=== PATIENT | male | born 1980 | race Caucasian/White ===

== ENCOUNTER 2017-01-12 20:51 | Emergency (ER) | payer BC, MEDICAID, OTHER ==
[2017-01-12 21:04] VITALS: BP 152/87
[2017-01-12] MEDS ORDERED: Ketorolac 60 MG/2 ML SDV IM ONE (21:33)
[2017-01-12] MEDS ORDERED: Cyclobenzaprine 10 MG Tab PO ONE (21:33)
[2017-01-12] MEDS ORDERED: HYDROmorphone 1 MG/ML Syringe IM ONE (21:33)
--- NOTE | 2017-01-12 21:44 | EDM.PDOC ---
ED UPPER BACK/NECK PAIN/INJURY - General Chief Complaint: Back Pain or Injury Stated Complaint: BACK PAIN Time Seen by Provider: 01/12/17 21:22 Source of Information: Reports: Patient History Limitations: Reports: No limitations - History of Present Illness INITIAL COMMENTS - FREE TEXT/NARRATIVE: Patient is a 36-year-old male presents ED complaining of severe left mid thoracic back pain. States it started around 1300 hours today. Notes increasing pain with movement taking a deep breath it radiates in up into his neck and down his back. Has intermittent numbness and tingling down the posterior aspect of his left leg. States he was moving boxes earlier this morning fracture. In addition he spent the remainder the day handling a hydro- vac working on a trench. Does not recall any specific precipitating factor. Has taken ibuprofen with minimal relief. He has no prior injury to his upper or lower back. He is able to ambulate with no difficulties. Denies any shortness of breath, chest pain, nausea vomiting, incontinence to urine or stool , saddle anesthesia, or any additional complaints. Patient denies any history of blunt forced trauma to his chest or back. Denies any past service. (i.e. percussion from explosives) Timing/Duration: Reports: Constant, Waxing/waning Location: Reports: paraspinal (Inferior border of left scapula. 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 - Related Data Allergies/ADRs: Allergies Allergy/AdvReac Type Severity Reaction Status Date / Time silantin Allergy Other Uncoded 01/12/17 21:04 Home Meds: Home Meds tiZANidine [Zanaflex] 4 mg PO BID #20 tablet 01/12/17 [Rx] Past Medical History HEENT History: Reports: Impaired vision Neurological History: Reports: Other (see below) Other Neuro History: 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 Denies: neck pain, shoulder pain Neurological: Reports: Numbness (down the posterior aspect of left leg, intermittent). Denies: Dizziness, Difficulty Walking ED EXAM, UPPER BACK/NECK PAIN - Physical Exam Exam: See Below Exam Limited By: No limitations General Appearance: alert, WD/WN, mild distress Ears Exam: hearing grossly normal Nose Exam: normal inspection Throat/Mouth Exam: Normal voice, No airway compromise Neck Exam: non-tender, full range of motion, normal alignment, normal inspection Cardiovascular/Respiratory: regular rate, rhythm, no M/R/G, normal peripheral pulses, normal breath sounds, no respiratory distress GI/Abdominal: normal bowel sounds, soft, non tender, no organomegaly, no distention, no abnormal bruit Back Exam: normal inspection, decreased range of motion, paraspinal tenderness ( inferior border of left rib: knot present. With palpation shoots pain to the neck and down his back. No swelling, ecchymosis, or bony abnormalities noted. ) . 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, no motor/sensory deficits, normal mood/ affect, oriented x 3 Psychiatric: normal affect, normal mood Skin Exam: Normal color, Warm/dry Course - Vital Signs Last Recorded V/S: Last Vital Signs Temp 98.1 F 01/12/17 21:00 Pulse 67 01/12/17 21:00 Resp 14 01/12/17 21:00 BP 152/87 H 01/12/17 21:00 Pulse Ox 100 01/12/17 21:00 - Orders/Labs/Meds Meds: Medications Discontinued Medications Generic Name Dose Route Start Last Admin Trade Name Freq PRN Reason Stop Dose Admin Cyclobenzaprine HCl 10 mg 01/12/17 21:33 01/12/17 21:44 Flexeril PO 01/12/17 21:34 10 mg ONETIME ONE Administration Hydromorphone HCl 0.5 mg 01/12/17 21:33 01/12/17 21:49 Dilaudid IM 01/12/17 21:34 Not Given ONETIME ONE Ketorolac Tromethamine 60 mg 01/12/17 21:33 01/12/17 21:45 Toradol IM 01/12/17 21:34 60 mg ONETIME ONE Administration - Re-Assessments/Exams Free Text/Narrative Re-Assessment/Exam: Ordered Dilaudid 0.5 mg IM, Flexeril 10 mg by mouth, and Toradol 60 mg IM. No studies required. 01/12/17 22:11 Reassessment, pain has drastically improved with the above therapies. Patient did refuse the dilaudid. Will discharge patient home with instructions as documented. Departure - Departure Time of Disposition: 22:12 Disposition: Home, Self-Care 01 Condition: good Clinical Impression: Muscle strain of left upper back Qualifiers: Encounter type: initial encounter Qualified Code(s): S29.012A - Strain of muscle and tendon of back wall of thorax, initial encounter Prescriptions: tiZANidine [Zanaflex] 4 mg PO BID #20 tablet Instructions: Back Pain, Adult, [id number], Muscle Strain, [id number], Back Injury Prevention, [id number] Referrals: Artem Ivy MD [Primary Care Provider] - Forms: ED Department Discharge, Return to Work/School Form Additional Instructions: Take zanaflex 4mg twice a day. For pain take ibuprofen 600mg every 6 hours and tylenol 650mg every 6 hours in alternating fashion. Apply warm compresses as needed with gentle massage and ice afterwards. Followup with PCP in one week if symptoms continue. Refrain from any activities that aggravate discomfort. Return to the E.D. for any new or worsening symptoms.
== END 2017-01-12 22:21 | disposition home or self-care (01) ==
LOC: JD.ED 20:51
DX: S29.012A Strain of muscle and tendon of back wall of thorax, initial encounter (principal); Z88.8 Allergy status to other drugs, medicaments and biological substances; X50.9XXA Other and unspecified overexertion or strenuous movements or postures, initial encounter; Y99.0 Civilian activity done for income or pay
CPT/HCPCS: 96372; 99283; A9270; J1885; 99284

== ENCOUNTER 2017-08-22 06:46 | Emergency (ER) | payer BC ==
[2017-08-22 07:10] VITALS: BP 138/84
--- NOTE | 2017-08-22 07:20 | EDM.PDOC ---
ED HPI GENERAL MEDICAL PROBLEM - General Chief Complaint: General Stated Complaint: DIZZY Time Seen by Provider: 08/22/17 07:14 Source of Information: Reports: Patient History Limitations: Reports: No Limitations - History of Present Illness INITIAL COMMENTS - FREE TEXT/NARRATIVE: Patient presents with acute onset of the vertigo symptoms while at work this morning. He works from 3:00 to 6:30 at [employer] when he developed for vertigo while at work. States he feels offkilter like he is spinning in the room and standing still. Associated nausea without vomiting. No recent closed head injuries. No recent upper respiratory tract infections. Reports listing to the left side. He was similar problems. Mild associated headache. States he had stop 3 times when driving his motor vehicle. He was driving on his way to [facility] to his second job. This morning he did have a piece of chocolate and some coffee to drink.. 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 (see below) (None.) - Related Data Allergies Allergy/AdvReac Type Severity Reaction Status Date / Time silantin Allergy Other Uncoded 08/22/17 07:07 Home Meds: Home Meds Meclizine [Antivert] 25 mg PO Q8H #12 tablet 08/22/17 [Rx] Past Medical History HEENT History: Reports: Impaired Vision Neurological History: Reports: Other (See Below) Other Neuro History: 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 Denies: Fever, Chills, Malaise, Weight Loss HEENT: Reports: Vertigo Respiratory: Reports: No Symptoms Cardiovascular: Reports: No Symptoms Endocrine: Reports: No Symptoms GI/Abdominal: Reports: No Symptoms : Reports: No Symptoms Musculoskeletal: Reports: No Symptoms Skin: Reports: No Symptoms Neurological: Reports: Headache, Difficulty Walking, Gait Disturbance. Denies: No Symptoms, Numbness, Paresthesia (Very mild), Seizure, Tingling, Trouble Speaking, Weakness, Change in Speech Psychiatric: Reports: No Symptoms Hematologic/Lymphatic: Reports: No Symptoms Immunologic: Reports: No Symptoms ED EXAM, GENERAL - Physical Exam Exam: See Below Exam Limited By: No Limitations General Appearance: Alert, WD/WN, Moderate Distress Eye Exam: Right Eye: Nystagmus (Lateral gaze nystatin is mildly sustained 7 beats.) Ears: Normal External Exam, Normal TMs Throat/Mouth: Normal Inspection, Normal Lips, Normal Teeth, Normal Oropharynx Head: Atraumatic, Normocephalic Neck: Normal Inspection, Supple, Non-Tender, Full Range of Motion. No: Lymphadenopathy (L), Lymphadenopathy (R) Respiratory/Chest: No Respiratory Distress, Lungs Clear, Normal Breath Sounds, No Accessory Muscle Use Cardiovascular: Normal Peripheral Pulses, Regular Rate, Rhythm, No Edema, No Gallop, No Murmur Peripheral Pulses: 2+: Posterior Tibial (L), Posterior Tibial (R), Dorsalis Pedis (L), Dorsalis Pedis (R) GI/Abdominal: Normal Bowel Sounds, Soft, Non-Tender, No Organomegaly, No Abnormal Bruit, No Mass, Pelvis Stable Extremities: Normal Inspection, Normal Range of Motion, Non-Tender, No Pedal Edema Neurological: Alert, Oriented, CN II-XII Intact, Normal Cognition, No Motor/ Sensory Deficits, Abnormal Gait (Unsteady gait. Required assistance to walk.), Other (Finger to nose was essentially normal. Rapid O Torres meeting was normal no pronator drift.) Psychiatric: Normal Affect, Normal Mood Skin Exam: Warm, Dry, Intact, Normal Color, No Rash Course - Vital Signs Last Recorded V/S: Last Vital Signs Temp 36.4 C 08/22/17 07:08 Pulse 66 08/22/17 07:08 Resp 18 08/22/17 07:08 BP 138/84 08/22/17 07:08 Pulse Ox 100 08/22/17 07:08 Orthostatic Blood Pressure [ 124/96 Standing] Orthostatic Blood Pressure [ 138/84 Supine] - Orders/Labs/Meds Orders: Active Orders 24 hr Category Date Time Status Orthostatic Vital Signs [RC] ASDIRECTED Care 08/22/17 07:13 Active Sodium Chloride 0.9% [Normal Saline] 1,000 ml Med 08/22/17 07:30 Active IV ASDIRECTED Medication Orders Sodium Chloride (Normal Saline) 1,000 mls @ 250 mls/hr IV ASDIRECTED DENISSE Last Admin: 08/22/17 07:37 Dose: 250 mls/hr Labs: Laboratory Tests 08/22/17 08/22/17 Range/Units 07:35 07:35 WBC 4.76 (4.23-9.07) K/mm3 RBC 5.24 (4.63-6.08) M/mm3 Hgb 15.0 (13.7-17.5) gm/L Hct 43.4 (40.1-51.0) % MCV 82.8 (79.0-92.2) fl MCH 28.6 (25.7-32.2) pg MCHC 34.6 (32.2-35.5) g/dl RDW Std Deviation 38.9 (35.1-43.9) fL Plt Count 205 (163-337) K/mm3 MPV 9.7 (9.4-12.3) fl Neutrophils % (Manual) 66 H (40-60) % Band Neutrophils % 0 (0-10) % Lymphocytes % (Manual) 29 (20-40) % Atypical Lymphs % 0 % Monocytes % (Manual) 4 (2-10) % Eosinophils % (Manual) 0 L (0.8-7.0) % Basophils % (Manual) 1 (0.2-1.2) Platelet Estimate Adequate RBC Morph Comment Normal Sodium 142 (136-145) mEq/L Potassium 3.6 (3.5-5.1) mEq/L Chloride 105 (98-107) mEq/L Carbon Dioxide 29 (21-32) mEq/L Anion Gap 11.6 (5-15) BUN 14 (7-18) mg/dL Creatinine 1.2 (0.7-1.3) mg/dL Est Cr Clr Drug Dosing 83.00 mL/min Estimated GFR (MDRD) > 60 (>60) mL/min BUN/Creatinine Ratio 11.7 L (14-18) Glucose 96 (74-106) mg/dL Calcium 9.3 (8.5-10.1) mg/dL Total Bilirubin 0.3 (0.2-1.0) mg/dL AST 27 (15-37) U/L ALT 34 (16-63) U/L Alkaline Phosphatase 68 (46-116) U/L C-Reactive Protein < 0.2 (<1.0) mg/dL Total Protein 7.6 (6.4-8.2) g/dl Albumin 4.2 (3.4-5.0) g/dl Globulin 3.4 gm/dL Albumin/Globulin Ratio 1.2 (1-2) Meds: Medications Generic Name Dose Route Start Last Admin Trade Name Freq PRN Reason Stop Dose Admin Sodium Chloride 1,000 mls @ 250 mls/hr 08/22/17 07:30 08/22/17 07:37 Normal Saline IV 250 mls/hr ASDIRECTED DENISSE Administration Discontinued Medications Generic Name Dose Route Start Last Admin Trade Name Freq PRN Reason Stop Dose Admin Lorazepam 0.5 mg 08/22/17 07:21 08/22/17 07:38 Ativan IVPUSH 08/22/17 07:22 0.5 mg ONETIME ONE Administration Metoclopramide HCl 10 mg 08/22/17 07:21 08/22/17 07:37 Reglan IVPUSH 08/22/17 07:22 10 mg ONETIME ONE Administration - Radiology Interpretation Free Text/Narrative:: 37-year-old male presents with acute onset of vertigo symptoms while in the workplace this morning. He denies any possible exposure just carbon dioxide. He presents with vertigo symptoms on right lateral gaze. Required 1 person to help him walk to the bathroom. Better if he lies still and closes his eyes. Plan normal saline at 250 mils per hour. Given Reglan 10 mg IV with Ativan 0.5 mg IV. Routine labs to be collected. CT head will be done. - Re-Assessments/Exams Free Text/Narrative Re-Assessment/Exam: 08/22/17 08:17 CT of the brain is within normal limits. There is no intracranial hemorrhage or mass effect. 08/22/17 09:28 Labs reveal a normal white count at 4.76 with a normal hemoglobin at 15.0 hematocrit of 43.4. Platelets are 205,000. Differential 66% neutrophils and no bands. Sodium is 142. Potassium 3.6. And a gap is 11.6. Creatinine is 1.2. B1 is 14. EGFR is greater than 60. Glucose is 96. Calcium 9.3. Total bilirubin is 0.3 liver function otherwise normal CRP is less than 0.2. 08/22/17 10:15: Did very well when up in the hallway in fact the dizziness vertigo is completely gone. We'll leave him off work today and see how he feels tomorrow. In the meantime I'm going to place him on Antivert 25 mg every 8 hours for 4 days. Tablet would be due at 2:00 today. He will return to the ED or follow-up with personal physician if any further problems occur. Departure - Departure Time of Disposition: 10:24 Disposition: Home, Self-Care 01 Condition: Fair Clinical Impression: Benign paroxysmal positional vertigo of left ear - Discharge Information Prescriptions: Meclizine [Antivert] 25 mg PO Q8H #12 tablet Referrals: PCP,None [Primary Care Provider] - Forms: ED Department Discharge, ED Return to Work/School Form Additional Instructions: Evaluation in the emergency room today in regards to sudden onset of severe vertigo which is a sense of spinning and off kilter in balance. All of the lab work done today was within normal limits which is usually the case. There was no evidence of heart related illness or blood pressure problems. Problem appears to be with the left ear with the balance mechanism not working properly. Treatment with medications intravenously Reglan and Ativan did control the symptoms. Suggest use of Antivert or meclizine 25 mg every 8 hours for the next 4 days to keep vertigo under control. They do not fix the problem time fixes the problem. Home to rest sleep today. Off work today may tentatively return tomorrow if you're feeling better. May eat and drink per normal.. - My Orders Last 24 Hours: My Active Orders 08/22/17 07:13 Orthostatic Vital Signs [RC] ASDIRECTED 08/22/17 07:30 Sodium Chloride 0.9% [Normal Saline] 1,000 ml IV ASDIRECTED - Assessment/Plan Last 24 Hours: My Active Orders 08/22/17 07:13 Orthostatic Vital Signs [RC] ASDIRECTED 08/22/17 07:30 Sodium Chloride 0.9% [Normal Saline] 1,000 ml IV ASDIRECTED
[2017-08-22] MEDS ORDERED: LORazepam 2 MG/ML MDV IVPUSH ONE (07:21)
[2017-08-22] MEDS ORDERED: Metoclopramide 10 MG/2 ML SDV IVPUSH ONE (07:21)
[2017-08-22] MEDS ORDERED: Sodium Chloride 0.9% 1,000 ML IV SCH (07:30)
--- NOTE | 2017-08-22 08:00 | CT ---
Head CT Technique: Multiple axial sections through the brain were obtained. Intravenous contrast was not utilized. Comparison: Prior head CT study of 04/14/16. Findings: Ventricles along with basal cisterns and sulci over the convexities appear within normal limits for the patient's age. Areas of encephalomalacia are noted within the left cerebellar hemisphere and within the left temporal lobe. These are stable from prior head CT exam. Overlying bur holes and craniotomy appear to be present on the left side. No other abnormal parenchymal densities are seen. No evidence of intracranial hemorrhage. No midline shift or mass effect is seen. No acute calvarial abnormality is identified. Visualized sinuses are clear. Impression: 1. Stable head CT from prior exam of 04/14/16. 2. No acute intracranial abnormality is identified. Diagnostic code #2
== END 2017-08-22 10:36 | disposition home or self-care (01) ==
LOC: JD.ED 06:46
DX: H81.12 Benign paroxysmal vertigo, left ear (principal); Z88.8 Allergy status to other drugs, medicaments and biological substances
CPT/HCPCS: 36415; 70450; 80053; 85025; 86140; 96361; 96374; 96375; 99284; J2060; J2765; J7040

== ENCOUNTER 2018-01-03 12:54 | Emergency (ER) | payer BC, OTHER ==
[2018-01-03] MEDS ORDERED: Sodium Chloride 0.9% 10 ML Syringe FLUSH PRN (13:01)
--- NOTE | 2018-01-03 13:46 | CT ---
CT cervical spine Technique: Multiple axial sections were obtained from above C1 inferiorly to the mid T3 level. Reconstructed sagittal and coronal images were reviewed. Comparison: Prior cervical spine CT exam of 04/14/16. Findings: Stable disc space narrowing is noted C5-C6 with posterior and anterior osteophytes. Mild degenerative change within the uncovertebral joints also noted at C5-C6. Other disc spaces are preserved. Vertebral body heights are maintained. No fracture is identified. No bony central or bony neural foraminal stenosis is seen. No abnormal subluxation is seen. Scoliosis is present within the spine. Impression: 1. Mild degenerative change. 2. Scoliosis which is possibly positional. 3. Nothing acute is appreciated on CT study of the cervical spine. Diagnostic code #2
--- NOTE | 2018-01-03 13:46 | CT ---
Head CT Technique: Multiple axial sections through the brain were obtained. Intravenous contrast was not utilized. Comparison: Prior head CT study of 08/22/17. Findings: Encephalomalacia is noted within the temporal lobe. Previous left-sided craniotomy is seen. There is also an area of encephalomalacia within the left cerebellar hemisphere which is stable. No abnormal parenchymal densities are seen. No midline shift or mass effect is seen. No intracranial hemorrhage is identified. Bone window settings shows no acute calvarial abnormality. Visualized sinuses are clear. Impression: 1. Stable areas of encephalomalacia on the left side with previous left-sided craniotomy. 2. No acute intracranial abnormality is seen. No appreciable change is seen from previous head CT exam. Diagnostic code #2
--- NOTE | 2018-01-03 13:48 | CR ---
Pelvis: AP view of the pelvis was obtained. Comparison: No prior pelvis exam. Joint spaces within both hips are maintained. Right sacroiliac joint appears to be slightly narrowed as compared to the left side. No fracture or other bony abnormality is appreciated. Impression: 1. Possible joint space narrowing within the right sacroiliac joint although some of this may also represent rotation. 2. Nothing acute is appreciated on single AP pelvis study. Diagnostic code #2
[2018-01-03] MEDS ORDERED: Acetaminophen 325 MG Tab PO ONE (14:40)
[2018-01-03] MEDS ORDERED: Ketorolac 30 MG/ML SDV IVPUSH SCH (14:45)
--- NOTE | 2018-01-03 15:09 | EDM.PDOC ---
ED HPI GENERAL MEDICAL PROBLEM - General Chief Complaint: Trauma Stated Complaint: BACK INJURY Time Seen by Provider: 01/03/18 13:00 Source of Information: Reports: Patient, RN Notes Reviewed - History of Present Illness INITIAL COMMENTS - FREE TEXT/NARRATIVE: 37-year-old male presents to ED having suffered a fall cleaning attained had a fracture site [place]. Wearing a hard hat but did hit the back of his head hard. He believes that he had believed LOC. He has moderate headache on arrival, moderate posterior neck discomfort, low back pain and also left lateral hip discomfort. He was brought here by private vehicle. This injury occurred about 2 hours prior to arrival. He is not been vomiting. He does not feel nauseated at this time. No focal weakness, numbness or tingling. No chest pain or difficulty breathing. Head Pain Score (Numeric/FACES): 10 Neck Pain Score (Numeric/FACES): 10 Lower Back Pain Score (Numeric/FACES): 10 Left Hip Pain Score (Numeric/FACES): 10 - Related Data Allergies Allergy/AdvReac Type Severity Reaction Status Date / Time silantin Allergy Other Uncoded 01/03/18 13:03 Home Meds: Home Meds . [No Known Home Meds] 01/03/18 [History] Past Medical History HEENT History: Reports: Impaired Vision Other HEENT History: wears eyeglasses. 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 Open skull Fx. Oncologic (Cancer) History: Reports: None - Infectious Disease History Infectious Disease History: Reports: Chicken Pox, Measles, Mumps - Past Surgical History Male Surgical History: Reports: None Social & Family History - Family History Cardiac: Reports: Hypertension - Tobacco Use Smoking Status *Q: Never Smoker Second Hand Smoke Exposure: No - Caffeine Use Caffeine Use: Reports: Coffee, Energy Drinks, Soda - Alcohol Use Days Per Week of Alcohol Use: 0 - Recreational Drug Use Recreational Drug Use: No Review of Systems - Review of Systems Review Of Systems: See Below Constitutional: Reports: No Symptoms Eyes: Reports: No Symptoms Ears: Reports: No Symptoms Nose: Reports: No Symptoms Mouth/Throat: Reports: No Symptoms Respiratory: Denies: Shortness of Breath, Pleuritic Chest Pain Cardiovascular: Denies: Chest Pain GI/Abdominal: Denies: Abdominal Pain, Nausea, Vomiting Musculoskeletal: Reports: Neck Pain, Back Pain (Low back), Joint Pain (Left hip) Skin: Reports: No Symptoms Neurological: Denies: Numbness, Tingling ED EXAM, GENERAL - Physical Exam Exam: See Below General Appearance: Alert, Anxious, Moderate Distress Eye Exam: Bilateral Eye: PERRL Throat/Mouth: Normal Inspection Head: Atraumatic, Other (No visible swelling, bruising or abrasion) Neck: Supple, Other (Diffuse posterior tenderness) Respiratory/Chest: No Respiratory Distress, Lungs Clear, Normal Breath Sounds Cardiovascular: Regular Rate, Rhythm GI/Abdominal: Soft, Non-Tender. No: Guarding Back Exam: Vertebral Tenderness (Low mid back, no bruising swelling or abrasion visible) Extremities: Leg Pain (Wrist tenderness of the left lateral hip) Skin Exam: Warm, Dry, Normal Color Course - Vital Signs Last Recorded V/S: Last Vital Signs Temp 98.5 F 01/03/18 15:25 Pulse 74 01/03/18 15:25 Resp 16 01/03/18 15:25 BP 148/97 H 01/03/18 15:25 Pulse Ox 99 01/03/18 15:25 - Orders/Labs/Meds Orders: Active Orders 24 hr Category Date Time Status Peripheral IV Care [RC] . DIRECTED Care 01/03/18 13:02 Active Ketorolac [Toradol] Med 01/03/18 14:45 Active 30 mg IVPUSH ONETIME Sodium Chloride 0.9% [Saline Flush] Med 01/03/18 13:01 Active 10 ml FLUSH ASDIRECTED PRN Peripheral IV Insertion Adult [OM.PC] Stat Oth 01/03/18 13:00 Ordered Medication Orders Ketorolac Tromethamine (Toradol) 30 mg IVPUSH ONETIME [facility] Last Admin: 01/03/18 14:59 Dose: 30 mg Sodium Chloride (Saline Flush) 10 ml FLUSH ASDIRECTED PRN PRN Reason: Keep Vein Open Last Admin: 01/03/18 13:03 Dose: 10 ml Labs: Laboratory Tests 01/03/18 01/03/18 Range/Units 13:03 13:03 WBC 6.55 (4.23-9.07) K/mm3 RBC 5.35 (4.63-6.08) M/mm3 Hgb 15.7 (13.7-17.5) gm/L Hct 44.6 (40.1-51.0) % MCV 83.4 (79.0-92.2) fl MCH 29.3 (25.7-32.2) pg MCHC 35.2 (32.2-35.5) g/dl RDW Std Deviation 38.7 (35.1-43.9) fL Plt Count 203 (163-337) K/mm3 MPV 9.5 (9.4-12.3) fl Neut % (Auto) 65.5 (34.0-67.9) % Lymph % (Auto) 21.7 L (21.8-53.1) % [place] % (Auto) 10.2 (5.3-12.2) % Eos % (Auto) 1.8 (0.8-7.0) Baso % (Auto) 0.6 (0.1-1.2) % Neut # (Auto) 4.29 (1.78-5.38) K/mm3 Lymph # (Auto) 1.42 (1.32-3.57) K/mm3 [place] # (Auto) 0.67 (0.30-0.82) K/mm3 Eos # (Auto) 0.12 (0.04-0.54) K/mm3 Baso # (Auto) 0.04 (0.01-0.08) K/mm3 Sodium 142 (136-145) mEq/L Potassium 4.1 (3.5-5.1) mEq/L Chloride 106 (98-107) mEq/L Carbon Dioxide 27 (21-32) mEq/L Anion Gap 13.1 (5-15) BUN 14 (7-18) mg/dL Creatinine 1.0 (0.7-1.3) mg/dL Est Cr Clr Drug Dosing 102.81 mL/min Estimated GFR (MDRD) > 60 (>60) mL/min BUN/Creatinine Ratio 14.0 (14-18) Glucose 103 (74-106) mg/dL Calcium 9.7 (8.5-10.1) mg/dL Total Bilirubin 0.3 (0.2-1.0) mg/dL AST 25 (15-37) U/L ALT 33 (16-63) U/L Alkaline Phosphatase 78 (46-116) U/L Total Protein 7.6 (6.4-8.2) g/dl Albumin 4.3 (3.4-5.0) g/dl Globulin 3.3 gm/dL Albumin/Globulin Ratio 1.3 (1-2) Meds: Medications Generic Name Dose Route Start Last Admin Trade Name Freq PRN Reason Stop Dose Admin Ketorolac Tromethamine 30 mg 01/03/18 14:45 01/03/18 14:59 Toradol IVPUSH 30 mg ONETIME DENISSE Administration Sodium Chloride 10 ml 01/03/18 13:01 01/03/18 13:03 Saline Flush FLUSH 10 ml ASDIRECTED PRN Administration Keep Vein Open Discontinued Medications Generic Name Dose Route Start Last Admin Trade Name Freq PRN Reason Stop Dose Admin Acetaminophen 975 mg 01/03/18 14:40 01/03/18 14:58 Tylenol PO 01/03/18 14:41 975 mg NOW ONE Administration - Re-Assessments/Exams Free Text/Narrative Re-Assessment/Exam: 01/03/18 15:57 Labs came back normal, CT of head and neck was normal, x-ray looked good, x-ray of the pelvis and left hip also looked good he was given Toradol 30 mg IV and Tylenol by mouth. That he did really well. Feeling tremendously better at time of discharge. Discharge instructions as documented. Departure - Departure Time of Disposition: 15:07 Disposition: Home, Self-Care 01 Condition: Fair Clinical Impression: Concussion with brief (less than one hour) loss of consciousness, Contusion of hip Fall Qualifiers: Encounter type: initial encounter Qualified Code(s): W19.XXXA - Unspecified fall, initial encounter Low back strain Qualifiers: Encounter type: initial encounter Qualified Code(s): S39.012A - Strain of muscle, fascia and tendon of lower back, initial encounter - Discharge Information Instructions: Adductor Muscle Strain, Concussion, Adult, [id number], Gluteal Strain Referrals: PCP,None [Primary Care Provider] - Forms: ED Department Discharge Additional Instructions: Rest, off for today and tomorrow, you may than return to light-duty activity if tolerated, you may alternate Tylenol and ibuprofen as needed for discomfort if not up to returning to work or Tuesday and I do recommend a follow-up with occupational health for medical clearance for further evaluation, treatment as needed. Return to ED as needed if symptoms worsening in any way. - My Orders Last 24 Hours: My Active Orders 01/03/18 13:00 Peripheral IV Insertion Adult [OM.PC] Stat 01/03/18 13:01 Sodium Chloride 0.9% [Saline Flush] 10 ml FLUSH ASDIRECTED PRN 01/03/18 13:02 Peripheral IV Care [RC] . DIRECTED 01/03/18 14:45 Ketorolac [Toradol] 30 mg IVPUSH ONETIME - Assessment/Plan Last 24 Hours: My Active Orders 01/03/18 13:00 Peripheral IV Insertion Adult [OM.PC] Stat 01/03/18 13:01 Sodium Chloride 0.9% [Saline Flush] 10 ml FLUSH ASDIRECTED PRN 01/03/18 13:02 Peripheral IV Care [RC] . DIRECTED 01/03/18 14:45 Ketorolac [Toradol] 30 mg IVPUSH ONETIME
--- NOTE | 2018-01-03 15:28 | CR ---
Chest: Frontal view of the chest was obtained. Comparison: Prior chest x-ray of 01/09/15. Heart size and mediastinum are within normal limits. Lungs are clear. Bony structures are grossly intact. Impression: 1. Nothing acute is identified on frontal chest x-ray. Diagnostic code #1
--- NOTE | 2018-01-03 15:28 | CR ---
Lumbar spine: Crosstable lateral and AP view of the lumbar spine were obtained. Comparison: Lateral reconstructed images from CT abdomen and pelvis study of 01/09/15. Minimal scoliosis is noted. Mild anterior wedging of T12 is seen. This anterior wedge deformity appears fairly stable from previous exam. Other vertebral body heights are maintained. Scattered endplate osteophytes are seen. Pedicles as well as transverse and spinous processes are intact. No abnormal subluxation is seen. Impression: 1. Mild anterior wedging of T12 believed to be old. 2. Mild scattered degenerative change and minimal scoliosis are noted. Diagnostic code #2
[2018-01-03 15:32] VITALS: BP 148/97
== END 2018-01-03 15:25 | disposition home or self-care (01) ==
LOC: JD.ED 12:54
DX: S06.0X9A Concussion with loss of consciousness of unspecified duration, initial encounter (principal); S39.012A Strain of muscle, fascia and tendon of lower back, initial encounter; Z88.8 Allergy status to other drugs, medicaments and biological substances; W19.XXXA Unspecified fall, initial encounter; W22.8XXA Striking against or struck by other objects, initial encounter
CPT/HCPCS: 36415; 70450; 71045; 72100; 72125; 72170; 80053; 85025; 96374; 99285; A9270; J1885; J7050; 99284

== ENCOUNTER 2021-02-21 20:46 | Emergency (ER) | payer OTHER, SELFPAY ==
[2021-02-21] MEDS ORDERED: Sodium Chloride 0.9% 1,000 ML IV SCH (21:30)
--- NOTE | 2021-02-21 21:33 | EDM.PDOC ---
ED HPI GENERAL MEDICAL PROBLEM - General Chief Complaint: Trauma Stated Complaint: FELL ON A BRICK NECK AND BACK PAIN Time Seen by Provider: 02/21/21 21:06 Source of Information: Reports: Patient, Family () History Limitations: Reports: Altered Mental Status (Somewhat lethargic) - History of Present Illness INITIAL COMMENTS - FREE TEXT/NARRATIVE: A trauma alert was called for this patient. Mr. العلي is a very pleasant 41-year-old gentleman who is now brought to the ED by EMS after he was carrying a heavy chest and tripped and fell on a lawn around 20:30 this evening. The fall was not witnessed, and the patient does not recall the event itself. According to the patient, he recalls carrying the chest, then finding himself looking up at the sharan. He is complaining of a headache to the right side of his head, along with tinnitus that switches back and forth between his right and left ears. He denies photophobia, but states that if he opens his eyes, he sometimes sees stars, and it makes him feel dizzy. He reports phonophobia. He complains of pain to his posterior neck, and states that he has an electric shock sensation going up and down his back and into both of his lower extremities. He complains of pain to his lower right posterior ribs and to his left lateral hip area. He denies having nausea. Other than occasionally seeing stars, he denies visual changes, per se, such as blurry vision or diplopia. Here in the ED, the patient's initial BP is found to be elevated at 166/94, otherwise, he is hemodynamically stable, afebrile, saturating 98% on room air. He is keeping his eyes closed, and appears to be somewhat lethargic, although is not in acute distress. A cervical collar was placed upon arrival to the ED. Prior to this evening, the patient denies having a recent fever, chills, sore throat, ear pain, nasal or sinus congestion, cough, dyspnea, chest pain, palpitations, nausea, vomiting, constipation, diarrhea, abdominal pain, urinary symptoms, recent weight gain or weight loss, recent bloody bowel movements or black bowel movements, recent joint aches, headaches, or rashes. The patient's PCP is Dr. Kadeem Correa. Neck Pain Score (Numeric/FACES): 10 Head Pain Score (Numeric/FACES): 10 Right Posterior Back Pain Score (Numeric/FACES): 5 - Related Data Allergies Allergy/AdvReac Type Severity Reaction Status Date / Time silantin Allergy Other Uncoded 01/03/18 13:03 Home Meds: Home Meds . [No Known Home Meds] 01/03/18 [History] Past Medical History HEENT History: Reports: Impaired Vision (wears glasses) Musculoskeletal History: Reports: Fracture (ribs) Neurological History: Reports: Head Trauma, Seizure (as a child, s/p left temporal lobectomy) - Infectious Disease History Infectious Disease History: Reports: Chicken Pox, Measles, Mumps - Past Surgical History Head Surgeries/Procedures: Reports: Craniotomy (Left temoporal lobectomy) Social & Family History - Tobacco Use Tobacco Use Status *Q: Never Tobacco User - Caffeine Use Caffeine Use: Reports: Coffee, Energy Drinks, Soda - Alcohol Use Alcohol Use History: Yes Alcohol Use Frequency: Rarely - Recreational Drug Use Recreational Drug Use: No - Living Situation & Occupation Living situation: Reports: , with Spouse, with Family (7 kids) Occupation: Employed ([employer]) Review of Systems - Review of Systems Review Of Systems: Comprehensive ROS is negative, except as noted in HPI. ED EXAM, GENERAL - Physical Exam Exam: See Below Exam Limited By: No Limitations General Appearance: WD/WN, No Apparent Distress, Lethargic Eye Exam: Bilateral Eye: EOMI, Normal Inspection, PERRL Ears: Normal External Exam, Normal Canal, Hearing Grossly Normal, Normal TMs Nose: Normal Inspection, Normal Mucosa, No Blood Throat/Mouth: Normal Inspection, Normal Lips, Normal Teeth (poor dentition), Normal Gums, Normal Oropharynx, Normal Voice, No Airway Compromise Head: Atraumatic (no visible or palpable injury), Normocephalic Neck: Other (Cervical collar kept in place) Respiratory/Chest: No Respiratory Distress, Lungs Clear, Normal Breath Sounds, No Accessory Muscle Use, Other (Tenderness to palpatio of the lower right ribs, piosterior axillary line. No associated visible abnormality, such as swelling, erythema, ecchymosis, or abrasion.). No: Decreased Breath Sounds, Crackles, Rhonchi, Wheezing, Stridor, Pleural Rub, Prolonged Expiration Cardiovascular: Normal Peripheral Pulses, Regular Rate, Rhythm, No Edema, No Gallop, No JVD, No Murmur, No Rub Peripheral Pulses: 3+: Radial (L), Radial (R) GI/Abdominal: Normal Bowel Sounds, Soft, Non-Tender, No Organomegaly, No Distention, No Abnormal Bruit, No Mass Back Exam: Normal Inspection, Full Range of Motion, NT Extremities: Normal Inspection, Normal Range of Motion, No Pedal Edema, Normal Capillary Refill Neurological: Oriented, CN II-XII Intact, No Motor/Sensory Deficits, Other (Somewhat lethargic) Skin Exam: Warm, Dry, Intact, Normal Color, No Rash Course - Vital Signs Last Recorded V/S: Last Vital Signs Temp 37.2 C 02/21/21 21:07 Pulse 74 02/21/21 21:07 Resp 20 02/21/21 21:07 BP 166/94 H 02/21/21 21:07 Pulse Ox 98 02/21/21 21:07 - Orders/Labs/Meds Orders: Active Orders 24 hr Category Date Time Status Cervical Spine wo Cont [CT] Stat Exams 02/21/21 21:18 Taken Chest 1V Frontal [CR] Stat Exams 02/21/21 21:28 Taken Head wo Cont [CT] Stat Exams 02/21/21 21:18 Taken Sodium Chloride 0.9% [Normal Saline] 1,000 ml Med 02/21/21 21:30 Active IV ASDIRECTED Medication Orders Sodium Chloride (Normal Saline) 1,000 mls @ 100 mls/hr IV ASDIRECTED DENISSE Last Admin: 02/21/21 21:58 Dose: 100 mls/hr Documented by: DAYO Labs: Laboratory Tests 02/21/21 02/21/21 02/21/21 Range/Units 21:45 21:45 21:45 WBC 6.34 (4.23-9.07) K/mm3 RBC 5.15 (4.63-6.08) M/mm3 Hgb 15.1 (13.7-17.5) gm/dl Hct 43.5 (40.1-51.0) % MCV 84.5 (79.0-92.2) fl MCH 29.3 (25.7-32.2) pg MCHC 34.7 (32.2-35.5) g/dl RDW Std Deviation 39.0 (35.1-43.9) fL Plt Count 231 (163-337) K/mm3 MPV 9.2 L (9.4-12.3) fl Neutrophils % (Manual) 70 H (40-60) % Band Neutrophils % 2 (0-10) % Lymphocytes % (Manual) 22 (20-40) % Atypical Lymphs % 1 % Monocytes % (Manual) 2 (2-10) % Eosinophils % (Manual) 1 (0.8-7.0) % Basophils % (Manual) 2 H (0.2-1.2) Platelet Estimate Adequate RBC Morph Comment Normal PT 11.2 (9.7-12.0) SECONDS INR 1.05 APTT 25.4 (21.7-31.4) SECONDS Sodium 142 (136-145) mEq/L Potassium 3.8 (3.5-5.1) mEq/L Chloride 106 (98-107) mEq/L Carbon Dioxide 27 (21-32) mEq/L Anion Gap 12.8 (5-15) BUN 15 (7-18) mg/dL Creatinine 1.3 (0.7-1.3) mg/dL Est Cr Clr Drug Dosing 76.43 mL/min Estimated GFR (MDRD) > 60 (>60) mL/min BUN/Creatinine Ratio 11.5 L (14-18) Glucose 93 (70-99) mg/dL Calcium 9.1 (8.5-10.1) mg/dL Total Bilirubin 0.3 (0.2-1.0) mg/dL AST 27 (15-37) U/L ALT 45 (16-63) U/L Alkaline Phosphatase 77 (46-116) U/L Total Protein 7.4 (6.4-8.2) g/dl Albumin 4.2 (3.4-5.0) g/dl Globulin 3.2 gm/dL Albumin/Globulin Ratio 1.3 (1-2) Meds: Medications Generic Name Dose Route Start Last Admin Trade Name Freq PRN Reason Stop Dose Admin Sodium Chloride 1,000 mls @ 100 mls/hr 02/21/21 21:30 02/21/21 21:58 Normal Saline IV 100 mls/hr ASDIRECTED DENISSE Administration - Re-Assessments/Exams Free Text/Narrative Re-Assessment/Exam: 02/21/21 21:29 As above, the patient was carrying a heavy chest when he tripped on something on a lawn, likely falling backwards, although the fall itself was unwitnessed, and the patient is amnestic to the event. He is complaining of a right-sided headache with tinnitus alternating between his left and right ear, posterior neck pain, an electric shock sensation going up and down his spine and into his bilateral lower extremities, and phonophobia. No photophobia or visual changes, although he sometimes sees stars when he opens his eyes, and opening his eyes sometimes induces a dizziness sensation. A cervical collar was placed upon arrival to the ED per his nurse. I have ordered a stat CT of the head and cervical spine without contrast, along with a portable chest x-ray, and several blood tests. In the meantime, the patient will be given gentle IV fluid. I will hold off pain medication until I see the results of his CT scans. 02/21/21 22:05 CT of the head without contrast is read by [facility] as: 1. No calvarial or skull base fracture. 2. No acute infarct or hemorrhage. CT of the cervical spine without contrast is read by [facility] as: 1. Mild disc space narrowing at C5-C6. 2. No fracture. Portable chest radiograph appears to be grossly normal. The cardiac silhouette is within normal limits. No pulmonary vascular congestion. No pleural effusions seen on this AP view. No focal infiltrate. No pneumothorax. Formal read per the Radiologist pending. 02/21/21 22:13 I reevaluated the patient. He is looking and feeling much better. I opened his cervical collar and examined his neck. He reports some tenderness to his upper and lower cervical spine, as well as some discomfort to his left paracervical musculature, however, he is able to turn his head fully to the left and right, tip his chin to his chest, and extend his neck without significant discomfort, and he prefers that the cervical collar remain off. Pain medication was offered, but declined. 02/21/21 22:18 The patient's CBC is unremarkable. His CMP is unremarkable. His coags are within normal limits. 02/21/21 22:21 Test results discussed with the patient and his . The patient states that he feels well enough to go home. I recommended that he take [id number] ibuprofen as needed for discomfort. I recommended that he get plenty of rest tonight, then resume his usual activities tomorrow. If his tinnitus persists, he is to follow-up with Dr. Correa for further evaluation. Departure - Departure Time of Disposition: 22:22 Disposition: Home, Self-Care 01 Condition: Good Clinical Impression: Contusion of rib on right side, Tinnitus Fall Qualifiers: Encounter type: initial encounter Qualified Code(s): W19.XXXA - Unspecified fall, initial encounter - Discharge Information *PRESCRIPTION DRUG MONITORING PROGRAM REVIEWED*: Not Applicable *COPY OF PRESCRIPTION DRUG MONITORING REPORT IN PATIENT RAMSES: Not Applicable Instructions: Tinnitus, Rib Contusion Referrals: Kadeem Correa MD [Primary Care Provider] - Forms: ED Department Discharge Additional Instructions: You were seen in the emergency room after tripping and falling, likely striking her head and neck, and lower right ribs. Work-up in the ER included CT scans of your head and cervical spine, along with a chest x-ray, and some blood work. Your entire work-up was unremarkable. No broken bones were found, and no visible head injury was seen. We recommend that you take [id number] ibuprofen as needed for discomfort, and get plenty of rest tonight, then resume your usual activities tomorrow. If the ringing in your ears persists, please follow-up with your PCP, Dr. Kadeem Correa, for further evaluation. If any other problems, please do not hesitate to return to the ER. Sepsis Event Note (ED) - Evaluation Sepsis Screening Result: No Definite Risk - Focused Exam Vital Signs: Vital Signs Temp Pulse Resp BP Pulse Ox 02/21/21 21:07 37.2 C 74 20 166/94 H 98 - My Orders Last 24 Hours: My Active Orders 02/21/21 21:18 Cervical Spine wo Cont [CT] Stat Head wo Cont [CT] Stat 02/21/21 21:28 Chest 1V Frontal [CR] Stat 02/21/21 21:30 Sodium Chloride 0.9% [Normal Saline] 1,000 ml IV ASDIRECTED - Assessment/Plan Last 24 Hours: My Active Orders 02/21/21 21:18 Cervical Spine wo Cont [CT] Stat Head wo Cont [CT] Stat 02/21/21 21:28 Chest 1V Frontal [CR] Stat 02/21/21 21:30 Sodium Chloride 0.9% [Normal Saline] 1,000 ml IV ASDIRECTED
[2021-02-21 23:08] VITALS: BP 127/82; PULSE 67
--- NOTE | 2021-02-22 10:27 | CT ---
Head CT Technique: Multiple axial sections through the brain were obtained. Intravenous contrast was not utilized. Reconstructed coronal and sagittal images were obtained. Comparison: Prior head CT study is 01/03/18. Findings: Ventricles along with basal cisterns and sulci over the convexities appear within normal limits. Encephalomalacia is noted within the left temporal lobe and left cerebellar hemisphere. These appear similar to previous head CT exam. Prior surgery is also seen on the left side. No other abnormal parenchymal densities are seen. No evidence of intracranial hemorrhage is seen. No midline shift or mass-effect is seen. Visualized paranasal sinuses and mastoid sinuses show nothing acute. No acute calvarial abnormality is appreciated. Impression: 1. Prior surgery on the left side. Areas of stable encephalomalacia within the left temporal and left cerebellar hemisphere. 2. No acute intracranial abnormality is appreciated. Diagnostic code #2 I agree with preliminary report from [facility], finalized on 02/21/21, 10:50 PM CDT, code 1
--- NOTE | 2021-02-22 11:02 | CR ---
Chest: Portable view of the chest was obtained. Comparison: Prior chest x-ray of 01/03/18. Heart size and mediastinum are within normal limits. Lungs are clear with no acute parenchymal change. No acute osseous abnormality is appreciated. Impression: 1. Nothing acute is appreciated on portable chest x-ray. 2. No appreciable change is seen from previous exam. Diagnostic code #1
--- NOTE | 2021-02-22 14:17 | CT ---
CT cervical spine Technique: Multiple axial sections were obtained from above C1 inferiorly to the T6 level. Reconstructed coronal and sagittal images were obtained. Comparison: Prior CT cervical spine study of 04/14/16 Findings: Moderate disc space narrowing is noted at C5-6 with mild anterior and posterior spurring. These findings are similar to prior CT study. Other disc spaces are maintained. Vertebral body heights are maintained. No bony central or bony neural foraminal stenosis is seen. No acute fracture or subluxation is seen. Impression: 1. Degenerative change at C5-6 which is similar to prior CT study. 2. Nothing acute is otherwise seen on CT study of the cervical spine. Diagnostic code #2 I agree with preliminary report from [facility], finalized on 02/21/21, 10:58 PM CDT, code 1
== END 2021-02-21 22:55 | disposition home or self-care (01) ==
LOC: JD.ED 20:46
DX: S20.211A Contusion of right front wall of thorax, initial encounter (principal); H93.13 Tinnitus, bilateral; Z88.5 Allergy status to narcotic agent; W01.0XXA Fall on same level from slipping, tripping and stumbling without subsequent striking against object, initial encounter
CPT/HCPCS: 36415; 70450; 71045; 72125; 80053; 85007; 85027; 85610; 85730; 99284; J7030

== ENCOUNTER 2021-08-26 13:40 | Emergency (ER) | payer OTHER, SELFPAY ==
[2021-08-26] MEDS ORDERED: Sodium Chloride 0.9% 10 ML Syringe FLUSH PRN (13:42)
[2021-08-26 14:02] VITALS: BP 160/77; PULSE 97
--- NOTE | 2021-08-26 14:08 | CT ---
Head CT Technique: Multiple axial sections through the brain were obtained. Intravenous contrast was not utilized. Reconstructed coronal and sagittal images were obtained. Comparison: Prior head CT study of 02/21/21. Findings: Ventricles along with basal cisterns and sulci over the convexities appear within normal limits. 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 No other abnormal parenchymal densities are seen. No evidence of intracranial hemorrhage is seen. No midline shift or mass-effect is seen. Bone window settings were reviewed. Prior craniotomy is noted on the left side. Slight mucosal thickening is seen within the left mastoid sinus which appears chronic. Right mastoid sinuses is clear. No acute paranasal sinus findings are seen. No acute calvarial abnormality is appreciated. Impression: 1. 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 Please correlate. 2. Prior craniotomy is seen on the left side. 3. Nothing acute is appreciated on noncontrast head CT study. Note: If patient's symptoms warrant further evaluation, MRI study could then be considered. Diagnostic code #2
[2021-08-26] MEDS ORDERED: HYDROmorphone 1 MG/ML Syringe IVPUSH ONE (14:15)
[2021-08-26] MEDS ORDERED: Ketorolac 30 MG/ML SDV IVPUSH ONE (14:15)
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
== END 2021-08-26 16:58 | disposition home or self-care (01) ==
LOC: JD.ED 13:40
DX: M54.6 Pain in thoracic spine (principal); R20.0 Anesthesia of skin; M54.2 Cervicalgia; Z88.8 Allergy status to other drugs, medicaments and biological substances
CPT/HCPCS: 36415; 70450; 80053; 84484; 85025; 85610; 85730; 93005; 96374; 96375; 99285; J1170; J1885

== ENCOUNTER 2021-12-02 20:15 | Emergency (ER) | payer OTHER ==
[2021-12-02 20:31] VITALS: BP 161/99; PULSE 80
[2021-12-02] MEDS ORDERED: HYDROmorphone 1 MG/ML Syringe IM ONE (20:41)
== END 2021-12-02 21:40 | disposition home or self-care (01) ==
LOC: JD.ED 20:15
DX: S52.571A Other intraarticular fracture of lower end of right radius, initial encounter for closed fracture (principal); Z88.8 Allergy status to other drugs, medicaments and biological substances; W01.198A Fall on same level from slipping, tripping and stumbling with subsequent striking against other object, initial encounter; Y99.0 Civilian activity done for income or pay
CPT/HCPCS: 29125; 73110; 73130; 96372; 99283; J1170; 99284

== ENCOUNTER 2023-01-27 14:17 | Emergency (ER) | payer OTHER ==
[2023-01-27 14:59] VITALS: BP 149/98; PULSE 79
[2023-01-27] MEDS ORDERED: Sodium Chloride 0.9% 10 ML Syringe FLUSH PRN (15:14)
[2023-01-27] MEDS ORDERED: Ketorolac 30 MG/ML SDV IVPUSH ONE (15:14)
[2023-01-27] MEDS ORDERED: Orphenadrine 100 MG Tab.ER PO SCH (15:15)
== END 2023-01-27 17:54 | disposition home or self-care (01) ==
LOC: JD.ED 14:17
DX: S29.012A Strain of muscle and tendon of back wall of thorax, initial encounter (principal); M62.830 Muscle spasm of back; Z88.8 Allergy status to other drugs, medicaments and biological substances; X50.0XXA Overexertion from strenuous movement or load, initial encounter; Y99.0 Civilian activity done for income or pay
CPT/HCPCS: 96374; 99283; A9270; J1885; J3490; 99284

== ENCOUNTER 2023-04-14 07:58 | Emergency (ER) | payer SELFPAY ==
[2023-04-14] MEDS ORDERED: Ketorolac 60 MG/2 ML SDV IM ONE (08:25)
[2023-04-14] MEDS ORDERED: HYDROmorphone 1 MG/ML Syringe IM ONE (08:26)
[2023-04-14 08:50] LABS: BASOPHILS ABSOLUTE AUTO 0.02 K/mm3 (0.01-0.08); BASOPHILS PERCENT AUTO 0.2 % (0.1-1.2); EOSINOPHILS PERCENT AUTO 0 (0.8-7.0); HEMATOCRIT 43.7 % (40.1-51.0); HEMOGLOBIN 15.3 gm/dl (13.7-17.5); IMMATURE GRAN ABSOLUTE AUTO 0.02 K/mm3 (0.00-0.10); IMMATURE GRAN PERCENT AUTO 0.2 % (<=1.0); LYMPHOCYTES ABSOLUTE AUTO 0.53 K/mm3 (1.32-3.57); MEAN CORPUSCULAR HEMOGLOBIN 29.5 pg (25.7-32.2); MEAN CORPUSCULAR VOLUME 84.2 fl (79.0-92.2); MEAN PLATELET VOLUME 9.3 fl (9.4-12.3); MONOCYTES PERCENT AUTO 7.6 % (5.3-12.2); NEUTROPHILS ABSOLUTE AUTO 11.54 K/mm3 (1.78-5.38); PLATELET COUNT,PLT 182 K/mm3 (163-337); RED BLOOD CELL COUNT 5.19 M/mm3 (4.63-6.08); WHITE BLOOD CELL COUNT,WBC 13.11 K/mm3 (4.23-9.07)
[2023-04-14 09:15] LABS: A/G RATIO 1.1 (1-2); ALBUMIN 4.1 g/dl (3.4-5.0); ANION GAP 13.8 (5-15); BILIRUBIN TOTAL 0.6 mg/dL (0.2-1.0); BUN/CREATININE RATIO 6.9 (14-18); C-REACTIVE PROTEIN 7.8 mg/dL (<1.0); CALCIUM 9.2 mg/dL (8.5-10.1); CREATININE 1.3 mg/dL (0.7-1.3); EST CRCL DRUG DOSING (CG) 74.87 mL/min; POTASSIUM,K 3.8 mEq/L (3.5-5.1)
[2023-04-14 09:31] LABS: APPEARANCE,URINE CLEAR (Clear); BILIRUBIN,URINE 1+ (Negative); COLOR,URINE YELLOW (Yellow); GLUCOSE,URINE NEGATIVE (Negative); KETONES,URINE 4+ (Negative); LEUKOCYTE ESTERASE,URINE NEGATIVE (Negative); NITRITE,URINE NEGATIVE (Negative); OCCULT BLOOD,URINE NEGATIVE (Negative); PROTEIN,URINE 1+ (Negative)
[2023-04-14 09:38] LABS: BACTERIA,URINE FEW /hpf (FEW); MUCUS,URINE FEW /hpf (FEW); RBC,URINE 0-5 /hpf (0-5); SQUAMOUS EPITHELIAL CELLS,UR 0-5 /hpf (0-5); WBC,URINE 0-5 /hpf (0-5)
[2023-04-14 11:07] VITALS: BP 128/80; PULSE 97
== END 2023-04-14 11:05 | disposition home or self-care (01) ==
LOC: JD.ED 07:58
DX: M54.50 Low back pain, unspecified (principal); L03.113 Cellulitis of right upper limb; Z88.8 Allergy status to other drugs, medicaments and biological substances
CPT/HCPCS: 36415; 72100; 80053; 81001; 85025; 86140; 96372; 99283; J1170; J1885

== ENCOUNTER 2024-01-06 15:31 | Emergency (ER) | payer BC ==
[2024-01-06] MEDS ORDERED: Sodium Chloride 0.9% 10 ML Syringe FLUSH PRN (16:03)
[2024-01-06] MEDS: Iopamidol 612 MG/ML 100 ML Bottle IVPUSH ONE (16:22)
[2024-01-06] MEDS: Iopamidol 612 MG/ML 30 ML SDV IV ONE (16:22)
[2024-01-06 16:30] LABS: BASOPHILS ABSOLUTE AUTO 0.1 K/mm3 (0.0-0.2); BASOPHILS PERCENT AUTO 0.6 % (0.0-1.0); HEMATOCRIT 43.4 % (42.0-52.0); HEMOGLOBIN 15.2 gm/dl (14.0-18.0); IMMATURE GRAN ABSOLUTE AUTO 0.02 K/mm3 (0.00-0.05); IMMATURE GRAN PERCENT AUTO 0.2 % (0.0-0.4); LYMPHOCYTES ABSOLUTE AUTO 0.5 K/mm3 (1.0-4.8); LYMPHOCYTES PERCENT AUTO 6.2 % (24.0-44.0); MEAN CORPUSCULAR HEMOGLOBIN 29.4 pg (28.0-32.0); MEAN CORPUSCULAR VOLUME 83.9 fl (83.0-99.0); MONOCYTES ABSOLUTE AUTO 0.7 K/mm3 (0.0-0.8); MONOCYTES PERCENT AUTO 9.1 % (0.0-8.0); NEUTROPHILS ABSOLUTE AUTO 6.7 K/mm3 (1.8-7.7); NEUTROPHILS PERCENT AUTO 83.9 % (41.0-71.0); PLATELET COUNT,PLT 194 K/mm3 (150-400); RED BLOOD CELL COUNT 5.17 M/mm3 (4.52-5.90); WHITE BLOOD CELL COUNT,WBC 8.03 K/mm3 (3.9-11.3)
[2024-01-06] MEDS: Sodium Chloride 0.9% 1,000 ML IV ONE (16:34)
[2024-01-06] MEDS: Acetaminophen 325 MG Tab PO ONE (16:34)
[2024-01-06] MEDS: Sodium Chloride 0.9% 10 ML Syringe FLUSH PRN (16:35)
[2024-01-06 16:44] LABS: A/G RATIO 1.1 (1-2); ANION GAP 13.8 (5-15); BILIRUBIN TOTAL 0.4 mg/dL (0.2-1.0); BUN/CREATININE RATIO 7.3 (14-18); CALCIUM 9.2 mg/dL (8.5-10.1); CREATININE 1.5 mg/dL (0.7-1.3); EST CRCL DRUG DOSING (CG) 64.89 mL/min; POTASSIUM,K 3.8 mEq/L (3.5-5.1); PROTEIN TOTAL,TP 7.6 g/dl (6.4-8.2)
[2024-01-06 16:45] LABS: CORONAVIRUS COVID-19 NAA POSITIVE (NEGATIVE); INFLUENZA A NAA NEGATIVE (NEGATIVE); RESPIRATORY SYNCYTIAL VIR NAA NEGATIVE (NEGATIVE)
[2024-01-06 17:06] LABS: APPEARANCE,URINE CLEAR (Clear); BILIRUBIN,URINE NEGATIVE (Negative); COLOR,URINE YELLOW (Yellow); GLUCOSE,URINE NEGATIVE (Negative); KETONES,URINE NEGATIVE (Negative); LEUKOCYTE ESTERASE,URINE NEGATIVE (Negative); NITRITE,URINE NEGATIVE (Negative); OCCULT BLOOD,URINE NEGATIVE (Negative); PH,URINE 8.5 (5.0-8.0); PROTEIN,URINE NEGATIVE (Negative)
[2024-01-06 17:13] LABS: AMORPHOUS SEDIMENT,URINE FEW /hpf (NOT SEEN); BACTERIA,URINE OCCASIONAL /hpf (FEW); MUCUS,URINE FEW /hpf (FEW); RBC,URINE 0-5 /hpf (0-5); SQUAMOUS EPITHELIAL CELLS,UR NOT SEEN /hpf (0-5); WBC,URINE 0-5 /hpf (0-5)
[2024-01-06 19:13] VITALS: BP 134/88; PULSE 111
== END 2024-01-06 17:45 | disposition home or self-care (01) ==
LOC: JD.ED 15:31
DX: U07.1 COVID-19 (principal); S00.01XA Abrasion of scalp, initial encounter; Z88.8 Allergy status to other drugs, medicaments and biological substances; Z86.19 Personal history of other infectious and parasitic diseases; W18.2XXA Fall in (into) shower or empty bathtub, initial encounter
CPT/HCPCS: 0241U; 36415; 70450; 71260; 72125; 74177; 80053; 81001; 83735; 84484; 85025; 93005; 96360; 99284; A9270; J3490; J7030; Q9967

== ENCOUNTER 2024-07-21 21:51 | Emergency (ER) | payer BC ==
[2024-07-21 22:07] LABS: BASOPHILS ABSOLUTE AUTO 0.1 K/mm3 (0.0-0.2); BASOPHILS PERCENT AUTO 1.1 % (0.0-1.0); EOSINOPHILS ABSOLUTE AUTO 0.2 K/mm3 (0.0-0.4); EOSINOPHILS PERCENT AUTO 2.8 % (0.0-6.0); HEMATOCRIT 42.3 % (42.0-52.0); HEMOGLOBIN 14.4 gm/dl (14.0-18.0); IMMATURE GRAN ABSOLUTE AUTO 0.01 K/mm3 (0.00-0.05); IMMATURE GRAN PERCENT AUTO 0.2 % (0.0-0.4); LYMPHOCYTES ABSOLUTE AUTO 1.8 K/mm3 (1.0-4.8); LYMPHOCYTES PERCENT AUTO 28.3 % (24.0-44.0); MEAN CORPUSCULAR HEMOGLOBIN 28.8 pg (28.0-32.0); MEAN CORPUSCULAR VOLUME 84.6 fl (83.0-99.0); MONOCYTES ABSOLUTE AUTO 0.7 K/mm3 (0.0-0.8); NEUTROPHILS ABSOLUTE AUTO 3.6 K/mm3 (1.8-7.7); NEUTROPHILS PERCENT AUTO 56.6 % (41.0-71.0); PLATELET COUNT,PLT 198 K/mm3 (150-400); WHITE BLOOD CELL COUNT,WBC 6.35 K/mm3 (3.9-11.3)
[2024-07-21 22:25] LABS: INR 1.03; PROTHROMBIN TIME 10.9 SECONDS (9.7-12.0)
[2024-07-21 22:28] LABS: LACTIC ACID 1.5 mmol/L (0.4-2.0)
[2024-07-21 22:35] LABS: A/G RATIO 1.2 (1-2); ALANINE AMINOTRANSFERASE,ALT 35 U/L (16-63); ALKALINE PHOSPHATASE 81 U/L (46-116); ANION GAP 10.7 (5-15); ASPARTATE AMNIOTRANSFERASE,AST 24 U/L (15-37); BILIRUBIN TOTAL 0.5 mg/dL (0.2-1.0); BLOOD UREA NITROGEN,BUN 12 mg/dL (7-18); BUN/CREATININE RATIO 10.9 (14-18); CALCIUM 8.9 mg/dL (8.5-10.1); CARBON DIOXIDE,CO2 29 mEq/L (21-32); CHLORIDE,CL 104 mEq/L (98-107); CREATININE 1.1 mg/dL (0.7-1.3); ESTIMATED GFR 84 mL/min (>60); GLUCOSE RANDOM 100 mg/dL (70-99); POTASSIUM,K 3.7 mEq/L (3.5-5.1); PROTEIN TOTAL,TP 7.3 g/dl (6.4-8.2); SODIUM,NA 140 mEq/L (136-145)
[2024-07-21] MEDS: Sodium Chloride 0.9% 1,000 ML IV SCH (23:23)
[2024-07-21] MEDS: Sodium Chloride 0.9% 10 ML Syringe FLUSH PRN (23:24)
[2024-07-22 01:10] LABS: CORONAVIRUS COVID-19 NAA NEGATIVE (NEGATIVE); INFLUENZA A NAA NEGATIVE (NEGATIVE); RESPIRATORY SYNCYTIAL VIR NAA NEGATIVE (NEGATIVE)
[2024-07-22 04:24] VITALS: BP 124/78; PULSE 58
== END 2024-07-22 02:30 | disposition home or self-care (01) ==
LOC: JD.ED 21:51
DX: R51.9 Headache, unspecified (principal); Z88.8 Allergy status to other drugs, medicaments and biological substances
CPT/HCPCS: 0241U; 36415; 70450; 80053; 80307; 82947; 83605; 85025; 85610; 93005; 99284; J3490; J7030